=== PATIENT | male | born 1970 | race Caucasian/White ===

== ENCOUNTER → 2022-07-29 | Day surgery (SDC) | payer OTHER ==
[2022-07-28 12:35] LABS: COVID AG,FIA SOURCE NASAL SWAB
[~2022-07-29] VITALS: Ht 165.1 cm; Wt 90.8 kg
[~2022-07-29] MED LIST: IBUP-1492 PO; METF-1211 PO; OXYGEN THERAPY IH SCH; SODIUM CHLORIDE 0.9% 1,000 ML IV ONE; SODIUM CHLORIDE 0.9% 1,000 ML ONE
[2022-07-29 07:47] LABS: GLUCOMETER DEV NAME(LOC) SDS.; GLUCOSE,POINT OF CARE 150 MG/DL (70-110)
== END | disposition still patient (30) ==
LOC: SURGERY 06:49
PROVIDERS: ATTEND Specialist
DX: K64.0 First degree hemorrhoids (principal); K21.9 Gastro-esophageal reflux disease without esophagitis; E11.9 Type 2 diabetes mellitus without complications; Z79.899 Other long term (current) drug therapy; Z20.822 Contact with and (suspected) exposure to COVID-19
CPT/HCPCS: 87426; 45398; 82962; C9803; C1716; J7030

== ENCOUNTER 2023-07-25 18:05 | Emergency (ER) | payer OTHER ==
[~2023-07-25] VITALS: Ht 167.6 cm; Wt 77.3 kg
[~2023-07-25 18:05] MED LIST changes: -OXYGEN THERAPY IH SCH; -SODIUM CHLORIDE 0.9% 1,000 ML IV ONE; -SODIUM CHLORIDE 0.9% 1,000 ML ONE
[2023-07-25 18:10] VITALS: BP 127/59; PULSE 103; RESP 18; TEMP 98.4
[2023-07-25] MEDS ORDERED: BLOO-462 IH (19:02)
[2023-07-25] MEDS ORDERED: PIOG30TA70 PO (19:02)
[2023-07-25] MEDS ORDERED: FLUT16H NASAL (19:02)
[2023-07-25] MEDS ORDERED: DOXA1TAB2 PO (19:02)
[2023-07-25] MEDS ORDERED: AZEL137S8 NASAL (19:02)
== END 2023-07-25 19:26 | disposition left against medical advice (07) ==
LOC: EMS 18:10
DX: R42 Dizziness and giddiness (principal); Z53.21 Procedure and treatment not carried out due to patient leaving prior to being seen by health care provider
CPT/HCPCS: 93005; 99281; Z7502